=== PATIENT | female | born 1955 | race Caucasian/White ===

== ENCOUNTER 2020-06-07 12:57 | Outpatient (CLI) | payer OTHER ==
--- NOTE | 2020-06-15 08:04 | Mammography Report ---
BILATERAL DIGITAL SCREENING MAMMOGRAM 3D/2D: 06/07/2020 CLINICAL: Routine screening. No prior exams were available for comparison. The tissue of both breasts is heterogeneously dense. T his may lower the sensitivity of mammography. There is an irregular equal density asymmetry in the right breast anterior depth medial region seen o n the craniocaudal view only. There also is an irregular equal density focal asymmetry in the right breast at 10 o'clock middle dep th. There is an oval equal density asymmetry in the left breast at 7 o'clock anterior depth. No other significant masses or calcifications are seen in either breast. IMPRESSION: INCOMPLETE: NEEDS ADDITIONAL IMAGING EVALUATION The irregular equal density asymmetry in the right breast anterior depth medial region seen on the cr aniocaudal view only is indeterminate. Additional views with possible ultrasound are recommended. The irregular equal density focal asymmetry in the right breast at 10 o'clock middle depth is indeter minate. Additional views with possible ultrasound are recommended. The oval equal density asymmetry in the left breast at 7 o'clock anterior depth is indeterminate. Ad ditional views with possible ultrasound are recommended. This exam was interpreted at Station ID: [id number]. NOTE: For mammograms, a report in lay terms will be sent to the patient. Approximately 15% of breast malignancies will not be visualized mammographically. In the management of a palpable breast mass, a negative mammogram must not discourage biopsy of a clinically suspicious lesion. Electronically Signed By: Chano Orourke M.D. aty/:06/14/2020 12:52:16 ACR BI-RADS Category 0: Incomplete 3340F PARENCHYMAL PATTERN: (D) - The breast(s) demonstrate(s) heterogeneously dense fibroglandular parniko murry. BI-RADS CATEGORY: (0) - 0 Mammo and [place] [id number] Immediate follow-up LATERALITY: (B)
== END 2020-06-07 12:58 | disposition home or self-care (01) ==
LOC: DI.N 12:57
PROVIDERS: ATTEND Nurse Practitioner
DX: Z12.31 Encounter for screening mammogram for malignant neoplasm of breast (principal); R92.8 Other abnormal and inconclusive findings on diagnostic imaging of breast

== ENCOUNTER 2020-09-14 10:47 | Outpatient (CLI) | payer OTHER ==
--- NOTE | 2020-09-14 15:47 | DEXA Report ---
PROCEDURE: Dexa Spine and/or Hip INDICATIONS: SCREENING FOR OSTEOPOROSIS TECHNIQUE: Dual energy x-ray absorptiometry (DXA) was performed on a [employer] System. Regions measur ed are the AP Spine, femoral neck, and if needed forearm. COMPARISON: None. FINDINGS: Lumbar Spine: Bone Mineral Density 1.014 g/cm/cm,T score -1.4, osteopenia Left Hip: Bone Mineral Density 0.773 g/cm/cm,T score -1.9, osteopenia Left Femoral Neck: Bone Mineral Density 0.709 g/cm/cm, T score -2.4, osteopenia (T score greater or equal to -1.0: NORMAL) (T score from -1.1 to -2.4: OSTEOPENIA) (T score less than or equal to -2.5 to: OSTEOPOROSIS) Impression: Osteopenia involving the lumbosacral spine overall, left hip region overall, and the left femoral neck. Patients with diagnosis of osteoporosis or osteopenia should have regular bone mineral density assess ment. For those eligible for Medicare, routine testing is allowed once every 2 years. Testing frequ ency can be increased for patients who have rapidly progressing disease or for those who are receivin g medical therapy to restore bone mass. Reviewed by: José Miguel Malik MD on 09/14/2020 3:45 PM PDT Approved by: José Miguel Malik MD on 09/14/2020 3:45 PM PDT Station ID: [id number]
== END 2020-09-14 10:48 | disposition home or self-care (01) ==
LOC: DI 10:47
PROVIDERS: ATTEND Nurse Practitioner
DX: Z13.820 Encounter for screening for osteoporosis (principal); M85.89 Other specified disorders of bone density and structure, multiple sites; Z78.0 Asymptomatic menopausal state

== ENCOUNTER 2020-09-22 12:34 | Outpatient (CLI) | payer OTHER ==
--- NOTE | 2020-09-23 12:49 | Mammography Report ---
BILATERAL DIGITAL DIAGNOSTIC MAMMOGRAM 3D/2D: 09/22/2020 CLINICAL: Patient returns today to evaluate asymmetries in bilateral breasts. Comparison is made to exams dated: 06/07/2020 mammogram - [facility], 11/05/2017 teressa mogram, 11/01/2016 mammogram, and 04/25/2016 mammogram - [facility]. The tissue of both b reasts is heterogeneously dense. This may lower the sensitivity of mammography. The benign irregular equal density asymmetry in the right breast anterior depth medial region seen on the craniocaudal view only is no longer seen. This is not seen in additional views. There also is a stable benign irregular equal density focal asymmetry in the right breast at 10 [place] middle depth. There is a stable benign oval equal density asymmetry in the left breast at 7 o'clock anterior depth. No other significant masses or calcifications are seen in either breast. IMPRESSION: BENIGN There is no mammographic evidence of malignancy. A 1 year screening mammogram is recommended. This exam was interpreted at Station ID: [id number]. NOTE: For mammograms, a report in lay terms will be sent to the patient. Approximately 15% of breast malignancies will not be visualized mammographically. In the management of a palpable breast mass, a negative mammogram must not discourage biopsy of a clinically suspicious lesion. Electronically Signed By: Jarret owens/rashel:09/22/2020 15:53:52 ACR BI-RADS Category 2: Benign Finding(s) 3342F PARENCHYMAL PATTERN: (D) - The breast(s) demonstrate(s) heterogeneously dense fibroglandular jean-paul murry. BI-RADS CATEGORY: (2) - 2 RECOMMENDATION: (ANNUAL) - Recommend routine annual screening mammography. [id number] 1 year screening LATERALITY: (B)
== END 2020-09-22 12:35 | disposition home or self-care (01) ==
LOC: DI 12:34
PROVIDERS: ATTEND Nurse Practitioner
DX: R92.8 Other abnormal and inconclusive findings on diagnostic imaging of breast (principal)

== ENCOUNTER 2022-04-18 09:27 | Outpatient (CLI) | payer OTHER ==
--- NOTE | 2022-04-19 11:30 | Mammography Report ---
BILATERAL DIGITAL SCREENING MAMMOGRAM 3D/2D: 04/18/2022 CLINICAL: Routine screening. Comparison is made to exams dated: 09/22/2020 mammogram, 06/07/2020 mammogram - [facility], 11/05/2017 mammogram, 11/01/2016 mammogram, 04/25/2016 ultrasound, and 04/25/2016 mammogram - [facility]. There are scattered areas of fibroglandular density in both breasts (category b / 25%-50% glandular t issue). No significant masses, calcifications, or other findings are seen in either breast. There has been no significant interval change. IMPRESSION: NEGATIVE There is no mammographic evidence of malignancy. A 1 year screening mammogram is recommended. Based on the Tyrer Cuzick model (a risk assessment model) the patients lifetime risk is 6.9% and her 10 year risk is 3.6%. According to the ACR, ACS, and NCCN guidelines, an annual breast MRI exam viviane g with mammogram is recommended if the patients lifetime risk is 20% or greater. This exam was interpreted at Station ID: [id number]. NOTE: For mammograms, a report in lay terms will be sent to the patient. Approximately 15% of breast malignancies will not be visualized mammographically. In the management of a palpable breast mass, a negative mammogram must not discourage biopsy of a clinically suspicious lesion. Electronically Signed By: Rachel vega/rashel:04/18/2022 17:53:09 ACR BI-RADS Category 1: Negative 3341F PARENCHYMAL PATTERN: (A) - The breast(s) demonstrate(s) scattered fibroglandular densities. BI-RADS CATEGORY: (1) - 1 RECOMMENDATION: (ANNUAL) - Recommend routine annual screening mammography. [id number] 1 year screening LATERALITY: (B)
== END 2022-04-18 09:28 | disposition home or self-care (01) ==
LOC: DI.N 09:27
PROVIDERS: ATTEND Nurse Practitioner
DX: Z12.31 Encounter for screening mammogram for malignant neoplasm of breast (principal)

== ENCOUNTER 2022-05-17 13:32 | Emergency (ER) | payer OTHER ==
--- NOTE | 2022-05-17 14:25 | ED Physician Documentation ---
PD HPI LOWER EXT INJURY - Stated complaint Stated Complaint: R HIP PX - Chief complaint Chief Complaint: Ext Problem - History obtained from History obtained from: Patient - History of Present Illness PD HPI LOW EXT INJURY LOCATION: Right, Hip Type of injury: No: Fall, Twist Where injury occurred: Home Timing - onset: How many months ago (1) Timing - duration: Months (1) Timing - details: Gradual onset, Still present, Waxing and waning Worsened by: Moving, Palpating Associated symptoms: No: Weakness, Numbness, Swelling Similar symptoms before: No diagnosis (has had intermittent pain right hip but more consistent the past month and has been notable with trying to sleep the past week such that poor sleep due to it.) Recently seen: Not recently seen Review of Systems Constitutional: denies: Fever, Chills Skin: denies: Rash, Lesions Neurologic: denies: Focal weakness, Numbness PD PAST MEDICAL HISTORY - Past Medical History Cardiovascular: None Respiratory: None Endocrine/Autoimmune: None Musculoskeletal: None - Present Medications Home Medications: Ambulatory Orders Medication Instructions Recorded Confirmed HYDROcod/ACETAM 5/325 [[place] 5/325] 1 ea PO Q6H PRN #20 tablet 05/17/22 Lisinopril [Zestril] 5 mg PO BID 05/17/22 05/17/22 Meloxicam [Mobic] 7.5 mg PO BID 10 Days #20 tablet 05/17/22 tiZANidine [Zanaflex] 4 mg PO Q8H PRN #20 tablet 05/17/22 - Allergies Allergies/Adverse Reactions: Allergies Allergy/AdvReac Type Severity Reaction Status Date / Time No Known Drug Allergies Allergy Verified 05/17/22 13:41 PD ED PE NORMAL - Vitals Vital signs reviewed: Yes - General General: Alert and oriented X 3, No acute distress, Well developed/nourished - Abdomen Abdomen: Soft, Non tender - Back Back: No CVA TTP, No spinal TTP - Derm Derm: Normal color, Warm and dry, No rash - Extremities Extremities: Other (right hip with some tenderness lateral gluteal area. not really tender over the trochanteric area itslef, but more posterior and superior. ) - Neuro Neuro: No motor deficit, No sensory deficit Results - Vitals Vitals: Vital Signs - 24 hr 05/17/22 05/17/22 05/17/22 13:39 14:02 14:37 Temperature 36.8 C Heart Rate 80 Respiratory 14 16 17 Rate Blood Pressure 157/89 H O2 Saturation 99 05/17/22 05/17/22 15:00 15:43 Temperature Heart Rate 62 Respiratory 16 16 Rate Blood Pressure 143/78 H O2 Saturation 98 Oxygen O2 Source Room air - Rads (name of study) right hip Relevant Findings:: Prelim report reviewed, EMP independent interpretation of test (no acute changes nor arthritic component of the joint. ), See rad report PD Medical Decision Making - ED course Complexity details: reviewed results (normal xray reviewd myself and the report. Consider muscular. No sigsn of arthritic changes nor any bone lesions. Treat at muscular/tendonitis of gluteal area. ), considered differential (pain right hip/gluteal area. not tender focally at the trochanter nor si joint. more vaguely in the gluteal and posterior hip. Pain with extension against resistance, not as much with abduction nor external rotation. ), d/w patient Departure - Departure Disposition: 01 Home, Self Care Clinical Impression: Acute right hip pain Thi-trochanteric hip tendinitis Qualifiers: Laterality: right Qualified Code(s): M70.61 - Trochanteric bursitis, right hip Condition: Stable Record reviewed to determine appropriate education?: Yes Follow-Up: MOO PRAKASH ARNP [Primary Care Provider] - Prescriptions: Meloxicam [Mobic] 7.5 mg PO BID 10 Days #20 tablet HYDROcod/ACETAM 5/325 [[place] 5/325] 1 ea PO Q6H PRN #20 tablet PRN Reason: Pain tiZANidine [Zanaflex] 4 mg PO Q8H PRN #20 tablet PRN Reason: Spasms Comments: Your x-ray appears normal without any obvious bony abnormalities, rough edges, arthritis or bone lesions. This obviously does not show the soft tissue structures of muscles and ligaments. It seems likely you have a inflammation or strain of some of the muscles or tendons within the hip and pelvis. You could treat this with heat and stretching and massage for the area. I would suggest regular anti-inflammatories we could use meloxicam which is a little longer lasting so can be just twice daily for the next several days to 7 to 10 days. Add tizanidine muscle relaxant for stiffness and spasms, and especially at night for sleep. Add Tylenol every 4-6 hours if needed for pains. Hydrocodone/acetaminophen can be used for worse pains periodically if needed. I wrote prescriptions for these and send them to your preferred pharmacy. Follow-up with your primary care if not improving well over the next several days to week. Follow-up sooner or return to the ER if you have other symptoms develop such as worsening pain, rash or fevers, weakness or numbness or other concerns. I am prescribing a short course of narcotic pain medication for you. These are potentially dangerous and addictive medications that should be used carefully. These medications may constipate you. Take an mczq-vxm-flyhuia stool softener such as docusate twice daily with plenty of water while taking these medications. If you go 24 hours without a bowel movement, take [id number] MiraLAX, per package instructions. Do not drink or drive while taking these medications. If you received narcotic or sedating medications while in the emergency department do not drive for 24 hours. Store this medication in a safe, secure place and out of reach of children. It is a violation of federal law to give or sell this medication to another person or to use in a manner other than prescribed. The ED will not refill narcotic prescriptions, including prescriptions lost or stolen. You can dispose of unwanted medications at the [facility] office or at several pharmacies such as [facility]. Discharge Date/Time: 05/17/22 15:43
[2022-05-17] MEDS ORDERED: NAPROXEN 250 MG TABLET PO STA (14:50)
[2022-05-17] MEDS ORDERED: ACETAMINOPHEN 325 MG TABLET PO STA (14:50)
[2022-05-17] MEDS ORDERED: methocarbamoL 500 MG TABLET PO STA (14:50)
[2022-05-17 15:43] VITALS: BP 143/78
--- NOTE | 2022-05-17 18:09 | XRAY Report ---
PROCEDURE: Hip w/Pelvis 2-3V RT INDICATIONS: lateral hip pain for weeks TECHNIQUE: AP pelvis with lateral view(s) of the right hip(s). COMPARISON: None. FINDINGS: Bones: No fractures or dislocations. Pelvic ring appears intact. No suspicious bony lesions. Soft tissues: The visualized bowel gas pattern is normal. No suspicious soft tissue calcifications. IMPRESSION: No evidence acute bony abnormality of the pelvis and right hip. If clinical suspicion and/or symptoms persist, further assessment with repeat plain films or advanced imaging (e.g., CT, MRI, or bone scan) may be helpful for further assessment. Reviewed by: Ivan Ott MD on 05/17/2022 6:07 PM PST Approved by: Ivan Ott MD on 05/17/2022 6:07 PM PST Station ID: [id number]
== END 2022-05-17 15:43 | disposition home or self-care (01) ==
LOC: ED 13:32
DX: M70.61 Trochanteric bursitis, right hip (principal)
CPT/HCPCS: 73502; 99283; A9270